=== PATIENT | female | born 1995 | race Caucasian/White ===

== ENCOUNTER 2017-11-25 14:23 | Emergency (ER) | payer OTHER ==
[~2017-11-25 14:23] MED LIST: AMIT-104 PO; BIRTH CONTROL PO; ESCI5TAB10 PO; IBUP-56 PO; IBUP600T22 PO; LOR5/325 PO; NORG1TAB74 PO
[2017-11-25 14:29] VITALS: BP 128/95
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
[2017-11-25] MEDS ORDERED: ACETAMINOPHEN 500 MG TAB PO ONE (15:50)
[2017-11-25] MEDS ORDERED: ONDANSETRON 4 MG ODT TABDP SL ONE (15:50)
[2017-11-25] MEDS ORDERED: ONDA4TAB PO (16:02)
[2017-11-25] MEDS ORDERED: CYCL10TA29 PO (16:02)
== END 2017-11-25 16:13 | disposition home or self-care (01) ==
LOC: ER 14:38
DX: S06.0X0A Concussion without loss of consciousness, initial encounter (principal); Y04.2XXA Assault by strike against or bumped into by another person, initial encounter
CPT/HCPCS: 70450; 70486; 72125; 99284; S0119